=== PATIENT | female | born 1940 | race Caucasian/White ===

== ENCOUNTER → 2016-08-01 | Outpatient (CLI) | payer MEDICARE, BC ==
[~2016-08-01] MED LIST: CALCIUM + D SO1 EACH PO; CLARITIN 10MG T10 MG PO; FOSAMAX70 MG PO; INVANZ 1 GM VIAL1 GM IV; LORTAB 7.5-3251 EACH PO; MACROBID 100 M100 M1 PO; MIRALAX17 GM PO; NAPROXEN250 MG PO; NORCO 5-325 TA1 EACH PO; OSCAL 500 + D TA1 EA PO; PRILOSEC OTC20 MG PO; PROAIR HFA8.5 GM INH; TIZANIDINE HCL2 MG PO; TRAMADOL HCL50 MG PO
[2016-08-01 11:00] LABS: HEMOGLOBIN 12.2 gm/dl (12.3-15.3); RED BLOOD COUNT 4.08 M/UL (4.00-5.10); WHITE BLOOD COUNT 7.4 K/UL (4.5-11.0)
== END ==
LOC: OPSV2 09:10
PROVIDERS: Obstetrics & Gynecology
DX: Z01.810 Encounter for preprocedural cardiovascular examination (principal); Z01.812 Encounter for preprocedural laboratory examination; R39.15 Urgency of urination
CPT/HCPCS: 36415; 85025; 93005

== ENCOUNTER 2016-08-03 08:41 | Day surgery (SDC) | payer MEDICARE, BC ==
[~2016-08-03] VITALS: Ht 167.6 cm; Wt 63.5 kg
[2016-08-03] MEDS ORDERED: TIZANIDINE HCL2 MG PO (09:31)
[2016-08-03] MEDS ORDERED: CALCIUM + D SO1 EACH PO (09:32)
[2016-08-03] MEDS ORDERED: TRAMADOL HCL50 MG PO (09:33)
[2016-08-03] MEDS ORDERED: PRILOSEC OTC20 MG PO (09:33)
[2016-08-03] MEDS ORDERED: CLARITIN 10MG T10 MG PO (09:33)
[2016-08-03] MEDS ORDERED: PROAIR HFA8.5 GM INH (09:34)
[2016-08-03] MEDS ORDERED: FOSAMAX70 MG PO (09:36)
[2016-08-03 18:09] LABS: BUN/CREATININE RATIO 12 (0-10)
[2016-08-04 04:30] LABS: HEMOGLOBIN 10.3 gm/dl (12.3-15.3)
[2016-08-05] MEDS ORDERED: OSCAL 500 + D TA1 EA PO (17:26)
[2016-08-05] MEDS ORDERED: LORTAB 7.5-3251 EACH PO (17:28)
[2016-08-05] MEDS ORDERED: MACROBID 100 M100 M1 PO (17:30)
[2016-08-05] MEDS ORDERED: MIRALAX17 GM PO (17:31)
[2016-08-05] MEDS ORDERED: NAPROXEN250 MG PO (17:33)
[2016-08-05] MEDS ORDERED: NORCO 5-325 TA1 EACH PO (17:43)
== END 2016-08-05 18:51 | disposition home or self-care (01) ==
LOC: OR 08:41 → MED SURG 4 18:21 → OR 08-05 18:51
PROVIDERS: Emergency Medicine; Obstetrics & Gynecology
PROC: 0JQC0ZZ Repair Pelvic Region Subcutaneous Tissue and Fascia, Open Approach (ICD-10-PCS; principal; 2016-08-03 11:00)
PROC: 0USG0ZZ Reposition Vagina, Open Approach (ICD-10-PCS; 2016-08-03 11:00)
PROC: 0TSD0ZZ Reposition Urethra, Open Approach (ICD-10-PCS; 2016-08-03 11:00)
DX: N81.10 Cystocele, unspecified (principal); N81.82 Incompetence or weakening of pubocervical tissue; N39.3 Stress incontinence (female) (male); N32.0 Bladder-neck obstruction; R23.4 Changes in skin texture; R33.9 Retention of urine, unspecified; Z79.891 Long term (current) use of opiate analgesic; Z79.899 Other long term (current) drug therapy; M81.0 Age-related osteoporosis without current pathological fracture; Z90.710 Acquired absence of both cervix and uterus; J30.2 Other seasonal allergic rhinitis; K21.9 Gastro-esophageal reflux disease without esophagitis; Z88.6 Allergy status to analgesic agent; Z88.1 Allergy status to other antibiotic agents; Z80.0 Family history of malignant neoplasm of digestive organs
CPT/HCPCS: 36415; 80048; 81001; 85014; 85018; C1769; C1771; J0690; J2250; J2710; J2795; J3010; J7120

== ENCOUNTER 2016-08-23 17:15 | Inpatient (IN) | payer MEDICARE, BC ==
[~2016-08-23] VITALS: Ht 165.1 cm; Wt 73.0 kg
[~2016-08-23 17:15] MED LIST changes: -INVANZ 1 GM VIAL1 GM IV
[2016-08-23 20:39] LABS: HEMOGLOBIN 12.3 gm/dl (12.3-15.3); RED BLOOD COUNT 4.07 M/UL (4.00-5.10); WHITE BLOOD COUNT 16.5 K/UL (4.5-11.0)
[2016-08-25 06:02] LABS: HEMOGLOBIN 10.6 gm/dl (12.3-15.3)
[2016-08-25 06:07] LABS: RED BLOOD COUNT 3.59 M/UL (4.00-5.10); WHITE BLOOD COUNT 6.5 K/UL (4.5-11.0)
[2016-08-25 06:23] LABS: BUN/CREATININE RATIO 15 (0-10)
[2016-08-25 07:56] LABS: HEMOGLOBIN 11.3 gm/dl (12.3-15.3); RED BLOOD COUNT 3.79 M/UL (4.00-5.10); WHITE BLOOD COUNT 6.1 K/UL (4.5-11.0)
[2016-08-25 08:13] LABS: BUN/CREATININE RATIO 14 (0-10)
[2016-08-26 07:09] LABS: BUN/CREATININE RATIO 11 (0-10)
[2016-08-26] MEDS ORDERED: INVANZ 1 GM VIAL1 GM IV (13:51)
== END 2016-08-26 14:35 | disposition home or self-care (01) | DRG 690 ==
LOC: M/S 17:15
PROVIDERS: Internal Medicine Infectious Disease; ADMIT Obstetrics & Gynecology
DX: N30.00 Acute cystitis without hematuria (principal); B96.20 Unspecified Escherichia coli [E. coli] as the cause of diseases classified elsewhere; J30.9 Allergic rhinitis, unspecified; M81.0 Age-related osteoporosis without current pathological fracture; K21.9 Gastro-esophageal reflux disease without esophagitis; Z16.19 Resistance to other specified beta lactam antibiotics; Z98.890 Other specified postprocedural states; Z80.3 Family history of malignant neoplasm of breast; Z80.0 Family history of malignant neoplasm of digestive organs; Z88.5 Allergy status to narcotic agent; Z91.012 Allergy to eggs
CPT/HCPCS: 36415; 80048; 80053; 80170; 81001; 85025; 85027; 87040; 87086; 94664; J1335; J1580; J7030; J7050; J7120; Q9962